=== PATIENT | female | born 1995 | race Caucasian/White ===

== ENCOUNTER 2017-10-20 23:09 | Emergency (ER) | payer OTHER ==
[2017-10-20 23:17] VITALS: TEMP 36.8; O2SAT 100
[2017-10-21 00:30] LABS: BLOOD UREA NITROGEN 11 mg/dl (7-18); CALCIUM 8.4 mg/dl (8.5-10.1); CARBON DIOXIDE 25 mmol/L (21-32); GLUCOSE 90 mg/dl (70-99); POTASSIUM 3.6 mmol/L (3.5-5.1); SODIUM 136 mmol/L (136-145)
[2017-10-21] MEDS ORDERED: BCPILLS PO (05:08)
[2017-10-21] MEDS ORDERED: CETI10TA84 PO (05:08)
[2017-10-21] MEDS ORDERED: nasonex NAE (05:10)
[2017-10-21 05:19] VITALS: BP 93/65; PULSE 110; O2SAT 94
--- NOTE | 2017-10-21 07:54 | EMERGENCY ROOM VISIT NOTE ---
History Report prepared by [place]: Yazmin Rocha Under the Supervision of: Dr. Salome Harman D.O. First contact with patient: 23:11 Chief Complaint: ALCOHOL OVERDOSE Stated Complaint: ALCOHOL OVERDOSE History of Present Illness The patient is a 22 year old female who presents to the Emergency Room with complaints of an episode of alcohol overdose occurring prior to arrival. Per nursing staff, the patient was drinking at the [facility] and started vomiting there. The patient states that she has had a tooth ache and has been taking 800 mg Ibuprofen. She reports that she did not start the antibiotic she was prescribed yet. HPI and ROS limited secondary to intoxication. Source of History: patient, nursing staff History Limited By: intoxication Onset: prior to arrival Position: other (global) Quality: other (overdose) Timing: other (episode) Associated Symptoms: + vomiting Review of Systems See HPI for pertinent positives & negatives. A total of 10 systems reviewed and were otherwise negative. Past Medical & Surgical Medical Problems: (1) No Known Active Medical Problems Family History No pertinent family history Social History Alcohol Use: occasionally Marital Status: single Housing Status: lives with roommate Occupation Status: [employer] student Current/Historical Medications Scheduled Control Pills ( Control Pills), 1 TAB PO DAILY Cetirizine (Zyrtec), 10 MG PO DAILY Scheduled PRN [nasonex], 1 SPRAY KIKE DIRECTED PRN for dryness Allergies Coded Allergies: Amoxicillin (Verified Allergy, Unknown, rash, 10/21/17) Physical Exam Vital Signs Date Time Temp Pulse Resp B/P (MAP) Pulse Ox O2 Delivery O2 Flow Rate FiO2 10/21/17 05:19 110 18 93/65 94 10/21/17 04:30 91 17 121/78 98 Room Air 10/21/17 04:00 89 21 104/69 97 Room Air 10/21/17 03:30 96 14 111/73 96 Room Air 10/21/17 03:00 88 23 101/64 96 Room Air 10/21/17 02:30 82 22 100 Room Air 10/21/17 02:20 79 10/21/17 02:00 89 22 96 Room Air 10/21/17 01:30 85 24 97 Room Air 10/21/17 01:00 82 19 99 Room Air 10/21/17 00:30 72 26 99 Room Air 10/21/17 00:00 83 17 100 Room Air 10/20/17 23:20 94 10/20/17 23:17 36.8 109 18 134/93 100 Room Air 10/20/17 23:17 100 Room Air Physical Exam General: Smells of alcohol and vomit. Slurred speech. HEENT: Head - normocephalic and atraumatic Pupils are 8 mm and non-reactive to light. Extraocular eye muscles are intact, and sclera are anicteric. Nose - moist nasal mucosa without discharge. Mouth - moist buccal mucosa. Oropharynx is nonerythematous and there is no tonsillar exudate or edema noted. Vomit about her mouth. Neck: Supple; no JVD, nuchal rigidity, cervical lymphadenopathy. Heart: Tachycardic rate and regular rhythm. There is a normal S1 and S2 with no murmurs, clicks, or gallops appreciated. Lungs: Clear to auscultation bilaterally with no wheezes, rales, or rhonchi. Abdomen: Soft, completely nontender, nondistended, with good bowel sounds. There are no palpable pulsatile masses or hepatosplenomegaly. There is no guarding, rigidity, or rebound noted. Extremities: No evidence of cyanosis, clubbing, or edema. There are easily palpable peripheral pulses. Skin: warm and dry with good turgor and no rashes. Medical Decision & Procedures Laboratory Results 10/20/17 23:53 Test 10/20/17 23:53 Anion Gap 8.0 mmol/L (3-11) Estimated GFR () 122.2 Estimated GFR (Non- 105.4 BUN/Creatinine Ratio 13.4 (10-20) Calcium Level 8.4 mg/dl (8.5-10.1) Ethyl Alcohol mg/dL 205.0 mg/dl (0-3) Laboratory results per my review. ED Course 2319: Past medical records reviewed. The patient was evaluated in room A11B. A complete history and physical exam was performed. Labs were drawn as above. The patient was placed in the prone position to avoid aspiration. She was observed on the monitoring specialist and pulse oximeter. 0145: the patient is unresponsive with stable vital signs. 0310: the patient is sleeping and is hemodynamically stable 0505: Upon reevaluation, the patient is awake and alert. I discussed findings and results with her. She verbalized agreement of the treatment plan. The patient was discharged home. Medical Decision The patient is a 22 year old female who presents to the Emergency Room with complaints of an episode of alcohol overdose occurring prior to arrival. Differential diagnoses include alcohol overdose, drug intoxication, hypoglycemia , head injury, NSAID overdose. LABS: Alcohol 205 Normal renal function Normal glucose This is a 22-year-old female patient who was brought to the emergency department tonight after consuming too much alcohol. She was cooperative throughout her stay here in the emergency department. She remained hemodynamically stable while she sobered up. I instructed the patient to avoid such excessive alcohol use in the future. She should keep herself well- hydrated today and take a bland diet. Medication Reconcilliation Current Medication List: was personally reviewed by me Blood Pressure Screening Patient's blood pressure: Normal blood pressure Blood pressure disposition: Did not require urgent referral Impression Primary Impression: Alcohol overdose Scribe Attestation The scribe's documentation has been prepared under my direction and personally reviewed by me in its entirety. I confirm that the note above accurately reflects all work, treatment, procedures, and medical decision making performed by me. Departure Information Dispostion Home / Self-Care Forms HOME CARE DOCUMENTATION FORM, IMPORTANT VISIT INFORMATION Patient Instructions My [facility] Additional Instructions Avoid such excessive alcohol use in the future Rest. Take plenty of clear liquids today Use tylenol for headache Problem Qualifiers Primary Impression: Alcohol overdose Encounter type: initial encounter Injury intent: accidental or unintentional Qualified Codes: T51.91XA - Toxic effect of unspecified alcohol , accidental (unintentional), initial encounter
== END 2017-10-21 05:20 | disposition home or self-care (01) ==
LOC: EDBD 23:09 → C.EDA 23:10
DX: F10.929 Alcohol use, unspecified with intoxication, unspecified (principal); Y90.7 Blood alcohol level of 200-239 mg/100 ml; R00.0 Tachycardia, unspecified; Z79.3 Long term (current) use of hormonal contraceptives